=== PATIENT | female | born 1955 ===

== ENCOUNTER → 2017-06-21 | Emergency (ER) | payer OTHER ==
[~2017-06-21] VITALS: Ht 160 cm; Wt 40.8 kg
[~2017-06-21] MED LIST: DOLOGEN CAPLET1 EACH PO; PRILOSEC OTC20 MG PO; PROTONIX40 MG PO; ZANTAC300 MG PO; ZOFRAN4 MG PO
== END | disposition home or self-care (01) ==
LOC: ER 05:37
DX: R07.89 Other chest pain (principal)